=== PATIENT | male | born 1995 | race Asian ===

== ENCOUNTER 2019-01-30 15:56 | Emergency (ER) | payer OTHER ==
[~2019-01-30] VITALS: Ht 170.2 cm; Wt 84.0 kg
--- NOTE | 2019-01-30 16:20 | NUR ---
PT HERE AFTER EATING PEANUT COOOKIE EARLIER- HAS PEANUT ALLERGY. 5 MIN LATER TOOK BENADRYL. DEVELOPED HIVES AND FELT HIS THROAT CLOSING. AT THIS TIME IN THE ER, PT IS RED THROUGHOUT BACK AND ON ARMS BUT NO HIVES ARE PRESENT AND IS HAVING NO DIFFICULTY BREATHING. LUNGS ARE CLEAR. VSS. NADN. SITTING ON EDGE OF GURNEY. FAMILY AT BEDSIDE.
--- NOTE | 2019-01-30 16:23 | NUR ---
PA AT BEDSIDE ASSESSING PT NOW.
[2019-01-30] MEDS ORDERED: FAMOTIDINE 20 MG TABLET PO ONE (16:30)
[2019-01-30] MEDS ORDERED: ONDANSETRON ODT 4 MG PO ONE (16:30)
[2019-01-30] MEDS ORDERED: ONDANSETRON ODT 4 MG ONE (16:35)
[2019-01-30] MEDS ORDERED: FAMOTIDINE 20 MG TABLET ONE (16:35)
[2019-01-30] MEDS ORDERED: EPINEPHRINE 1 MG/ML, 1ML ONE (16:35)
[2019-01-30 16:43] VITALS: BP 129/79
--- NOTE | 2019-01-30 16:43 | NUR ---
PT MEDICATED PER EMAR. RESTING ON GURNEY. NADN. VSS.
[2019-01-30] MEDS ORDERED: EPINEPHRINE 1 MG/ML, 1ML IM ONE (17:00)
--- NOTE | 2019-01-30 17:36 | NUR ---
PT AMBULATORY WITH STEADY GAIT TO BATHROOM NOW.
--- NOTE | 2019-01-30 17:44 | NUR ---
PT RESTING ON GURNEY. SHAH
--- NOTE | 2019-01-30 18:05 | NUR ---
PT AWARE OF DC PLAN. GETTING DRESSED NOW.
== END 2019-01-30 18:18 | disposition home or self-care (01) ==
LOC: ED 18:00
DX: T78.40XA Allergy, unspecified, initial encounter (principal); R21 Rash and other nonspecific skin eruption; X58.XXXA Exposure to other specified factors, initial encounter
CPT/HCPCS: 96372; 99283; J0171; J7512; Q0162